=== PATIENT | female | born 1965 | race Caucasian/White ===

== ENCOUNTER → 2016-12-20 | Outpatient (CLI) | payer BC ==
[~2016-12-20] MED LIST: CALC-587 PO; FERR-24 PO; FEXO30TA10 PO; GUAI-485 PO; VITAMIN C
== END ==
LOC: WC.BC 15:53
DX: Z12.31 Encounter for screening mammogram for malignant neoplasm of breast (principal); N64.89 Other specified disorders of breast
CPT/HCPCS: 77063; G0202

== ENCOUNTER → 2016-12-26 | Outpatient (CLI) | payer BC | LOC: WC.BC 13:58 | PROVIDERS: ATTEND Obstetrics & Gynecology | DX: D48.62 Neoplasm of uncertain behavior of left breast (principal); R92.2 Inconclusive mammogram ==

== ENCOUNTER → 2017-01-01 | Outpatient (CLI) | payer BC ==
[~2017-01-01] MED LIST changes: +LIDOCAINE 1% 30ml (STERI-PAK) ONE; +LIDOCAINE 2%/EPI 1:100,000 20ml MDV ONE; +NORMAL SALINE 250 ML IV ONE
== END ==
LOC: IMA 13:15
PROVIDERS: ATTEND Obstetrics & Gynecology
DX: N60.82 Other benign mammary dysplasias of left breast (principal); R92.8 Other abnormal and inconclusive findings on diagnostic imaging of breast; N63 Unspecified lump in breast
CPT/HCPCS: 19083; J7050